=== PATIENT | female | born 1950 | race Caucasian/White ===

== ENCOUNTER → 2023-12-29 | Outpatient (REF) | payer OTHER, SELFPAY | LOC: DHSLP | PROVIDERS: ATTENDING PHYSICIAN Internal Medicine Critical Care Medicine; FAMILY PHYSICIAN Physician Assistant | DX: G47.30 Sleep apnea, unspecified (principal); R06.83 Snoring | CPT/HCPCS: 95800 ==

== ENCOUNTER → 2024-03-09 12:30 | Outpatient (REF) | payer OTHER, SELFPAY | LOC: WDC 12:30 | PROVIDERS: ATTENDING PHYSICIAN Obstetrics & Gynecology Gynecology; FAMILY PHYSICIAN Student in an Organized Health Care Education/Training Program | DX: Z12.31 Encounter for screening mammogram for malignant neoplasm of breast (principal) | CPT/HCPCS: 77063; 77067 ==

== ENCOUNTER → 2024-03-25 14:15 | Outpatient (REF) | payer OTHER, SELFPAY | LOC: RAD 14:15 | PROVIDERS: ATTENDING PHYSICIAN Physician Assistant | DX: R05.1 Acute cough (principal) | CPT/HCPCS: 71046 ==

== ENCOUNTER → 2024-05-23 06:48 | Outpatient (REF) | payer OTHER, SELFPAY | LOC: MRI 3T 06:48 | PROVIDERS: ATTENDING PHYSICIAN Orthopaedic Surgery; FAMILY PHYSICIAN Physician Assistant | DX: M54.16 Radiculopathy, lumbar region (principal) | CPT/HCPCS: 72148 ==

== ENCOUNTER → 2024-10-13 17:13 | Outpatient (REF) | payer OTHER, SELFPAY | LOC: RAD 17:13 | PROVIDERS: ATTENDING PHYSICIAN Physician Assistant | DX: M54.6 Pain in thoracic spine (principal); R10.13 Epigastric pain | CPT/HCPCS: 71046; 72072 ==

== ENCOUNTER 2024-10-15 12:13 | Emergency (ER) | payer OTHER, SELFPAY ==
[2024-10-15 12:19] VITALS: BP 100/55
--- NOTE | 2024-10-15 15:28 | ED.GENMED ---
History of Present Illness
General
Chief Complaint: Musculo-Skeletal Complaint
Time Seen by Provider: 10/15/24 15:06
History of Present Illness
History of Present Illness:
Patient is a 74-year-old woman presenting to the emergency department back pain. Patient states that she has had subtests in her lumbar region that she goes to an orthopedic surgeon for. She is getting spinal injections. She states that a few
days ago she stepped off when she developed sharp mid back pain. She went to her primary care doctor and obtain an x-ray. I did review the x-ray from 2 days ago. It does appear that she has a mild T7 compression fracture. Patient's primary care
did start her on oxycodone told her to follow-up with her orthopedic surgeon. She states that she has been taking 10 mg oxycodone every 6 hours. The pain has not improved so she came in for further evaluation. She has not tried Tylenol Motrin or
other adjunctive medications. No numbness tingling. No radiation. No urinary incontinence. No fevers or chills. No weight loss. No night sweats.
Past History
Past History
ED Past Medical History: Hypercholesterolemia, Psychiatric (anxiety) and Other (Compression Fractures)
ED Past Surgical History: Cholecystectomy and Other (Vani-en-Y bariatric surgery April 2014)
Social History
Tobacco: Smoker (chronic, now smokes 'about a pack a week.')
Alcohol: None
Drug: None
Personal: Single
Living: alone
Employment: Employed
Family History
Family History: Hypertension; Negative Early CAD
Phy Exam
Physical Exam
Physical Exam:
GENERAL: in no acute distress
HEENT: normocephalic, extraocular movements intact, moist oral mucosa
NECK: normal inspection, no tenderness to palpation
Back: Tenderness to palpation over the mid thoracic spine
RESPIRATORY: no respiratory distress, clear to auscultation bilaterally
CARDIOVASCULAR: regular rate and rhythm
EXTREMITIES: non-tender, no edema/swelling
NEUROLOGIC: awake and alert, moves all extremities
SKIN: warm
Course
Orders/Labs/Results
Orders:
Orders
10/15/24 15:27
Acetaminophen [Tylenol] 1,000 mg PO NOW STA
Ibuprofen [Motrin] 800 mg PO NOW STA
10/15/24 15:30
Lidocaine [Lidocaine 4% Patch] 1 patch TOPICAL DAILY
Apply Lidocaine patch(s) to:: middle back
Vital Signs
Initial and Last Documented VS:
Initial Vital Signs
Temp Pulse Resp BP Pulse Ox
98.1 F 108 16 100/55 95
10/15/24 12:19 10/15/24 12:19 10/15/24 12:19 10/15/24 12:19 10/15/24 12:19
Last Documented Vital Signs
Temp Pulse Resp BP Pulse Ox
98.1 F 85 16 106/52 97
10/15/24 12:19 10/15/24 16:16 10/15/24 16:16 10/15/24 16:16 10/15/24 16:16
MDM/Problems Addressed
Differential Diagnosis Includes:
Patient is a 74-year-old woman with known compression fracture presenting to the emergency department for worsening pain. Vitals are unremarkable exam does show tenderness palpation over the mid thoracic region likely T7. Given that patient has no
red flags otherwise likely pain that has not been well-managed. History exam not consistent with an infection, lytic lesion/malignancy. After shared decision making we will proceed with Tylenol Advil and lidocaine patch. I did consider obtaining
CT scan however will hold off at this time
*Critical Care Note
Total Time (30-74mins, 75-104mins- exclusive of procedures): Not Applicable
Update Note
Update Note:
On reevaluations patient's pain has significantly improved. I did educate patient on using Tylenol Motrin first before using the oxycodone. Also advised patient to try to take 5 mg of oxycodone instead of the 10 mg. Will discharge patient at this
time. Of note patient's blood pressure is in the low 100s which is patient's normal. She is not lightheaded or dizzy. She has no further concerns. Will discharge at this time
ED Attending Note
-
Portions of this chart may have been created with voice recognition software.� Occasional wrong word or��sound alike� substitutions may have occurred due to the inherent limitations of voice recognition software.
Discharge Plan
Departure
Patient Disposition: Home (Routine Discharge)
Date of Disposition: 10/15/24
Time of Disposition: 16:23
Patient with high blood pressure during this ER visit?: No
Discharge Problem:
Back pain
Instructions: Vertebral Compression Fracture ED
Prescriptions:
No Action
fluoxetine 20 MG capsule
80 mg PO DAILY
hydroxyzine pamoate [Vistaril] 25 MG capsule
50 mg PO DAILY
rosuvastatin 20 MG tablet
5 mg PO QPM
aripiprazole 5 MG tablet
2 mg PO DAILY
prednisone 10 MG tablet
10 mg PO DAILY Qty: 10 0RF
albuterol sulfate 1 PUFF HFA aerosol inhaler
2 puff inhalation R Q4HPRN PRN (Reason: cough, wheeze) Qty: 1 1RF
alprazolam [Xanax] 0.5 mg tablet
0.5 mg PO HS PRN (Reason: Sleep) Qty: 5 0RF
Activity Restrictions/Additional Instructions:
We discussed pain medications:
You may take Tylenol (also known as Acetaminophen) for pain.
You may take 1000mg Acetaminophen (two extra-strength tablets) per dose, which should be taken every 6-8 hours, or three times a day.
If you have normal strength Tylenol, you can take 650mg (two normal strength tablets) every 4-6 hours.
Do not take more than 3,000mg (3 grams) of Acetaminophen per day.
Never take more than as directed on the bottle.
You may also take Ibuprofen (also known as Motrin or Advil). If taking with Tylenol, alternate and take between dosing.
You may take 400-800mg of Ibuprofen per dose, which should be taken every 6-8 hours.
Do not take more than 3200mg (3.2 grams) of Ibuprofen per day.
You may also benefit from using a Lidocaine Patch (also known as 'Salon Pas'), which is an over the counter pain patch.
Place it just over the site of pain, avoiding areas of skin damage, as per instructions on the patch.
If the Tylenol and Motrin do not improve your pain then you may use Oxycodone for severe or breakthrough pain. This medication can cause constipation and drowsiness. Do not drive or make important decisions while taking it. Consider using a laxative
such as Senna while taking this medication.
Please see your primary care doctor soon to be reevaluated and to make sure that you are improving. We have included information about establishing care with a doctor if you do not have one.
We talked about your evaluation, diagnosis, and treatment in the Emergency Department today. You must see your primary doctor for recheck and followup care in order to evaluate your progress or any changes. Have your doctor recheck the test
results/information from the ED visit. As discussed, RETURN to the ED if you develop worsening/changing symptoms or have no improvement in symptoms after the treatments provided.
Interventions
Interventions:
*Risk Screen - Suicide Last Done: 10/15/24 12:19
*General Assessment Last Done: 10/15/24 15:52
*Neglect/Abuse Screening Last Done: 10/15/24 12:19
ED- Fall Risk Assessment Last Done: 10/15/24 15:53
*ED COVID-19 Vaccine History Last Done: 10/15/24 15:52
ED-Musculoskeletal Assessment Last Done: 10/15/24 15:53
Discharge Date and Time
Print Language: MALDIVIAN
[2024-10-15] MEDS: TYLENOL 1000 MG PO (15:46)
[2024-10-15] MEDS: MOTRIN 800 MG PO (15:48)
[2024-10-15] MEDS: LIDOCAINE 4% PATCH 1 PATCH TOPICAL (15:49)
[2024-10-15 15:51] VITALS: BMI 35.6
[2024-10-15 15:55] VITALS: BP 95/71
--- NOTE | 2024-10-15 16:15 | EDRN ---
BP was low, am rechecking. Pt states her BP is normally that low.
[2024-10-15 16:16] VITALS: BP 106/52
== END 2024-10-15 16:40 | disposition home or self-care (01) ==
LOC: EMR 12:13
PROVIDERS: EMERGENCY PHYSICIAN Student in an Organized Health Care Education/Training Program; FAMILY PHYSICIAN Physician Assistant
DX: M54.6 Pain in thoracic spine (principal); M48.54XA Collapsed vertebra, not elsewhere classified, thoracic region, initial encounter for fracture; E78.00 Pure hypercholesterolemia, unspecified; F41.9 Anxiety disorder, unspecified; F17.210 Nicotine dependence, cigarettes, uncomplicated; Z90.49 Acquired absence of other specified parts of digestive tract; Z98.84 Bariatric surgery status; Z88.0 Allergy status to penicillin; Z88.2 Allergy status to sulfonamides; Z88.8 Allergy status to other drugs, medicaments and biological substances
CPT/HCPCS: 99282

== ENCOUNTER 2024-11-09 22:27 | Emergency (ER) | payer MEDICARE, SELFPAY ==
[2024-11-09 22:28] VITALS: BP 140/78
[2024-11-09 22:38] VITALS: BMI 36.9
[2024-11-09 23:00] VITALS: BP 131/78
[2024-11-09] MEDS: DILAUDID 1 MG IV (23:52)
[2024-11-09 23:57] LABS: % Basophils 0.7 % (0-2); % Immature Granulocytes 0.4 % (0-0.5); % Lymphocytes 23.8 % (20.5-51.1); % Monocytes 6.4 % (1.7-9.3); % Neutrophils 65.7 % (42.2-75.2); Absolute Basophils 0.1 10^3/uL (0-0.2); Absolute Eosinophils 0.2 10^3/uL (0-0.7); Absolute Lymphocytes 1.8 10^3/uL (1.2-3.4); Absolute Monocytes 0.5 10^3/uL (0.1-0.6); Absolute Neutrophils 4.9 10^3/uL (1.4-6.5); Hematocrit 40.1 % (37.0-47.0); Mean Corp Hgb Conc. 32.4 g/dL (33.0-37.0); Mean Corpuscular Hgb 25.9 pg (27.0-31.0); Mean Corpuscular Volume 79.9 fL (81.0-99.0); Nucleated Red Blood Cells % 0 %; Platelet Count 206 10^3/uL (130-400); Red Blood Cell Count 5.02 10^6/uL (4.20-5.40); Red Cell Dist. Width 14.3 % (11.5-14.5); White Blood Cell Count 7.4 10^3/uL (4.8-10.8)
[2024-11-10] VITALS (7 sets, daily range): BP systolic 117–161; BP diastolic 59–76
[2024-11-10 00:26] LABS: Lactic Acid 0.8 mmol/L (0.7-2.0)
[2024-11-10 00:30] LABS: ALT (SGPT) 14 U/L (0-35); AST (SGOT) 24 U/L (14-36); Albumin 3.8 g/dl (3.5-5.0); Alkaline Phosphatase 94 U/L (38-126); Blood Urea Nitrogen 12 mg/dl (7-17); Calcium 8.9 mg/dl (8.4-10.2); Carbon Dioxide 23 mmol/L (22-30); Chloride 107 mmol/L (98-107); Estimated Creatinine Clearance 89 ml/min; Glucose 94 mg/dl (70-99); Lipase 101 U/L (23-300); Potassium 4.4 mmol/L (3.5-5.1); Sodium 135 mmol/L (135-145); Total Bilirubin 0.5 mg/dl (0.2-1.3); Total Protein 6.4 g/dl (6.3-8.2); eGFR > 60.00
--- NOTE | 2024-11-10 00:34 | ED.GENMED ---
History of Present Illness
General
Chief Complaint: Back Pain
Source: patient, previous radiology exam (Lumbar spine MRI April 2024. Thoracic spine x-ray October 13, 2024) and previous hospital records (ED visit with complaints of mid back pain October 15, 2024.)
Time Seen by Provider: 11/09/24 23:18
History of Present Illness
History of Present Illness:
This is a 74-year-old woman who has history of chronic low back pain, lumbar DJD, compression fracture L3 vertebra. Follows with pain management, maintained on oxycodone and has undergone several epidural steroid injections most recently this past
summer/fall without improvement. More recently has undergone local lumbar nerve root injection which was reportedly at least temporarily helpful in her low back pain thus she is contemplating rhizotomy procedure.
She also has history of T7 compression fracture noted on thoracic spine x-ray October 13, 2024. She began with somewhat abrupt mid back pain a few days prior to that x-ray. She was evaluated in this ED October 15 with complaints of mid back pain,
treated with Tylenol and ibuprofen and lidocaine patch with improvement. She states mid back pain has been stable. She has an appointment scheduled for next week with IR to discuss vertebroplasty procedure.
This evening, while turning a light on around 5 PM she developed somewhat abrupt onset of left low back pain that seem to radiate up her back and then back down her back has been persistent and severe since 5 PM. Left low back pain does not
radiated down her legs, no weakness nor numbness but she admits to marked difficulty ambulating, increased pain with attempting to stand and with attempted ambulation. She has not had a fall. No difficulty moving her bowels or bladder, no saddle
anesthesia. She denies fever nor chills. Low back pain has been radiating around to her mid to upper abdomen, worse with movement and ambulation and worse with cough. She does admit to somewhat chronic cough, continues to smoke cigarettes. She
denies chest pain, no neck pain, no arm pain or weakness.
She resides at home alone. Generally does not require assistive devices to ambulate. She does have a walker available to her but generally only needs this to help her get up from a chair.
Due to severe pain, difficulty getting up and marked difficulty ambulating she arrives to the ED via EMS.
Her last dose of oxycodone was around dinnertime.
Past History
Past History
ED Past Medical History: GERD, Hypercholesterolemia, Psychiatric (anxiety) and Other (Compression Fractures Thoracic and lumbar spine. 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 Follows with pain management.)
ED Past Surgical History: Cholecystectomy and Other (Vani-en-Y bariatric surgery April 2014)
Social History
Tobacco: Smoker (chronic, now smokes 'about a pack a week.')
Alcohol: None
Drug: None
Personal: Single
Living: alone
Employment: Retired
Family History
Family History: Hypertension; Negative Early CAD
Phy Exam
Physical Exam
Physical Exam:
GENERAL: 74-year-old woman appears her stated age, awake and alert, pleasant, appears in mild to moderate distress related to pain. Easily communicative. Rare brief dry cough is noted. No respiratory distress.
EYE: pupils equal and reactive. anicteric
NECK: Supple, nontender, no meningismus, no significant adenopathy.
ENT: oral mucosa is moist. No rhinorrhea.
CARDIAC: Regular rate and rhythm. no murmur. No palpable chest wall tenderness.
LUNGS: Clear breath sounds bilaterally, no acute respiratory distress, no wheezes/rales/rhonchi
ABDOMEN: Soft, nondistended, mild generalized tenderness mid to upper abdomen. no r/g, no cvat. normoactive BS.
BACK: pt able to sit up with assistance. mild TTP lumbar vertebral region as well as moderate TTP paralumbar region L>R. SLR (+) left
NEUROLOGICAL: Alert and oriented x3, no focal neuro deficits. MS 5/5/ b/l, gross sensation intact b/l.
SKIN: Warm and dry, normal color, skin intact. No rash.
MUSCULOSKELETAL: No C/C/E. peripheral pulses are full and equal b/l. No palpable tenderness.
PSYCH: Normal and appropriate interaction.
Course
Orders/Labs/Results
Orders:
Orders
11/09/24 23:39
Urinalysis Reflex To Culture Urgent
Date Specimen was Collected: 11/10/24
Time Specimen was Collected: 01:14
11/09/24 23:40
HYDROmorphone [Dilaudid] 1 mg IV NOW STA
11/09/24 23:50
CRP [C-Reactive Protein] Urgent
Complete Blood Count/With Diff Urgent
Comprehensive Metabolic Panel Urgent
Lactic Acid Urgent
Lipase Urgent
Sed Rate [Erythrocyte Sed Rate] Urgent
11/10/24 01:00
CT Abd/pelvis W Iv Cont Urgent
Reason For Exam: acute severe LBP rad to mid/upper abdomen
11/10/24 01:19
Urine Microscopic Reflex Cult Urgent
Urine Culture Urgent
CONCHA Source: U
Specimen Description:
Date Specimen was Collected: 11/10/24
Time Specimen was Collected: 01:14
11/10/24 01:20
Ketorolac [Toradol] 30 mg IV NOW STA
11/10/24 03:33
Dexamethasone Sod Phosphate [Decadron] 10 mg IV NOW STA
Abnormal Lab Results
11/09/24 11/10/24
23:50 01:19
MCV 79.9 L fL
(81.0-99.0)
MCH 25.9 L pg
(27.0-31.0)
MCHC 32.4 L g/dL
(33.0-37.0)
C-Reactive Protein 12.60 H mg/L
(0.0-10.00)
Urine Urobilinogen 2+ A
(Neg - 1+)
Leukocyte Esterase Rfl 1+ A
(Negative)
Urine Bacteria (Reflex) Many A
(Negative)
Urine Albumin (Reflex) 1+ A
(Neg - Trace)
11/09/24 23:50
11/09/24 23:50
Vital Signs
Initial and Last Documented VS:
Initial Vital Signs
BP
140/78
11/09/24 22:28
Last Documented Vital Signs
Temp BP Pulse Ox
98.4 F 117/68 95
11/09/24 22:32 11/10/24 06:21 11/10/24 06:23
MDM/Problems Addressed
Differential Diagnosis Includes:
Concern for exacerbation of lumbar disc disease, concern for exacerbation of back pain related to compression fractures, concern for new occult compression fractures. Other consideration is acute intra-abdominal pathology such as gastritis,
colitis, ischemic bowel, kidney stone, aortic dissection. She has not had a fever, no recent spinal procedures/at least not within the past month or 2. Therefore epidural hematoma/abscess is less likely.
Reassuring neurologic exam, no focal neurologic deficits nor concerning neurologic symptoms in history.
Will check labs, inflammatory markers, lactic acid. Medicate for pain with IV Dilaudid. Will plan for CT abdomen pelvis with IV contrast.
Social determinants of health: Concerning that patient resides alone and presents with acute ambulatory dysfunction, inability to ambulate, inability to effectively utilize her walker. There is significant concern/risk for falls, concern for
significant debility/injury.
Chronic conditions affecting care: Previous abdomnial surgery (Previous gastric sleeve procedure 2014. Thus NSAID use is limited.) and Other (Chronic low back pain/lumbar DJD with spinal stenosis, thoracic and lumbar compression fractures)
*Radiology
Radiology exam reviewed: radiology read reviewed
*Pulse Oximetry
Patient hypoxic: no
*Critical Care Note
Total Time (30-74mins, 75-104mins- exclusive of procedures): Not Applicable
Update Note
Update Note:
03:30
Patient had only minimal improvement in pain after IV Dilaudid but significant improvement in pain after IV Toradol.
Has able to get up, walk about, ambulates to and from the bathroom with steady unaided gait.
Labs are reassuring, unremarkable. CRP is very minimally elevated at 12 but normal sed rate.
Urinalysis shows many bacteria but only 0-2 WBCs, not consistent with UTI.
CT abdomen pelvis is unremarkable. There is note of hiatal hernia. Status post sleeve gastrectomy. Stool throughout the colon concerning for mild constipation. Diverticulosis without diverticulitis. No free fluid nor free air. No obstructive
urolithiasis.
I suspect exacerbation of lumbar disc disease. It is reassuring that she has had no radicular signs or symptoms. No red flags in history nor exam.
Will plan for an IV dose of Decadron as well as a prescription for tapering dose of prednisone.
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
ED Attending Note
-
Portions of this chart may have been created with voice recognition software.� Occasional wrong word or��sound alike� substitutions may have occurred due to the inherent limitations of voice recognition software.
Discharge Plan
Departure
Patient Disposition: Home (Routine Discharge)
Date of Disposition: 11/10/24
Time of Disposition: 06:40
Patient with high blood pressure during this ER visit?: No
Condition: Good
Discharge Problem:
Acute exacerbation of chronic low back pain
Instructions: Low Back Pain (DC)
Prescriptions:
New
prednisone 10 mg Tablet
See Rx Instructions .ROUTE .COMPLEX Qty: 30 0RF
Rx Instructions:
Take By Mouth:
40 mg daily x3 days, 30 mg daily x3 days,
20 mg daily x3 days, 10 mg daily x3 days.
No Action
fluoxetine 20 MG capsule
80 mg PO DAILY
hydroxyzine pamoate [Vistaril] 25 MG capsule
50 mg PO DAILY
rosuvastatin 20 MG tablet
5 mg PO QPM
aripiprazole 5 MG tablet
2 mg PO DAILY
prednisone 10 MG tablet
10 mg PO DAILY Qty: 10 0RF
albuterol sulfate 1 PUFF HFA aerosol inhaler
2 puff inhalation R Q4HPRN PRN (Reason: cough, wheeze) Qty: 1 1RF
alprazolam [Xanax] 0.5 mg tablet
0.5 mg PO HS PRN (Reason: Sleep) Qty: 5 0RF
Referrals:
Yelena Retana PA-C [Family Provider] - Call in 1-3 days for appt
Interventions
Interventions:
*Risk Screen - Suicide Last Done: 11/09/24 22:32
*General Assessment Last Done: 11/09/24 22:32
*Neglect/Abuse Screening Last Done: 11/09/24 22:32
ED- Fall Risk Assessment Last Done: 11/09/24 22:32
*ED COVID-19 Vaccine History Last Done: 11/09/24 22:32
ED-Musculoskeletal Assessment Last Done: 11/09/24 22:32
Discharge Date and Time
Print Language: ESTONIAN
[2024-11-10 00:35] LABS: Erythrocyte Sed Rate 14 mm/hour (0-20)
[2024-11-10 01:25] LABS: Urine Albumin 1+ (Neg - Trace); Urine Bilirubin Negative (Negative); Urine Character Clear (Clear); Urine Color Yellow; Urine Glucose Negative (Negative); Urine Ketone Negative (Negative); Urine Leukocyte 1+ (Negative); Urine Nitrite Negative (Negative); Urine Occult Blood Negative (Negative); Urine Urobilinogen 2+ (Neg - 1+)
[2024-11-10] MEDS: TORADOL 30 MG IV (01:29)
[2024-11-10 01:39] LABS: Urine Bacteria Many (Negative); Urine Red Blood Cell 0-2 /HPF (0-2); Urine White Cell 0-2 /HPF (0-5)
[2024-11-10] MEDS: DECADRON 10 MG IV (03:38)
== END 2024-11-10 07:00 | disposition home or self-care (01) ==
LOC: EMR 22:27
PROVIDERS: EMERGENCY PHYSICIAN Emergency Medicine; FAMILY PHYSICIAN Physician Assistant
DX: M54.50 Low back pain, unspecified (principal); W19.XXXA Unspecified fall, initial encounter; K21.9 Gastro-esophageal reflux disease without esophagitis; E78.00 Pure hypercholesterolemia, unspecified; F41.9 Anxiety disorder, unspecified; F17.210 Nicotine dependence, cigarettes, uncomplicated; Z60.2 Problems related to living alone; Z82.49 Family history of ischemic heart disease and other diseases of the circulatory system; Z90.49 Acquired absence of other specified parts of digestive tract
CPT/HCPCS: 99284; 96374; 96375; 74177; 80053; 81003; 81015; 83605; 83690; 85025; 85652; 86140; 87086; Q9967

== ENCOUNTER → 2024-11-15 11:31 | Outpatient (REF) | payer MEDICARE, SELFPAY | LOC: RADI 11:31 | PROVIDERS: ATTENDING PHYSICIAN Physician Assistant | DX: M80.08XA Age-related osteoporosis with current pathological fracture, vertebra(e), initial encounter for fracture (principal) ==

== ENCOUNTER → 2024-11-22 06:55 | Outpatient (REF) | payer MEDICARE, SELFPAY | LOC: PAVMRI 06:55 | PROVIDERS: ATTENDING PHYSICIAN Physician Assistant; FAMILY PHYSICIAN Physician Assistant | DX: M54.50 Low back pain, unspecified (principal) | CPT/HCPCS: 72148 ==

== ENCOUNTER → 2024-11-28 06:51 | Outpatient (REF) | payer MEDICARE, SELFPAY ==
[2024-11-28] VITALS (10 sets, daily range): BP systolic 94–141; BP diastolic 65–75
[2024-11-28 07:21] LABS: INR 0.94; PT 12.9 Sec (11.4-14.6)
[2024-11-28] MEDS: VANCOCIN 200 IV (08:34)
[2024-11-28] MEDS: DECADRON 10 MG IV (08:36)
--- NOTE | 2024-11-30 12:30 | W.PN.UPDATE ---
Update Note
Progress Note Update
74 yo female s/p L1 vertebral augmentation on 11/28/24. She reports significant low back pain today stating pain is almost as bad as it was preprocedure. I did advise that it can take up to 1 week for symptoms to improve. She does have osteoporosis
and we again reviewed that because of this she is at greater risk for developing an adjacent fracture in T12 or L2. She was advised if symptoms do not improve in 1 week she should follow up with her orthopedist to obtaina new MRI to see if she has
any acute compression fractures.
== END ==
LOC: RADI 06:51
PROVIDERS: ATTENDING PHYSICIAN Radiology Vascular & Interventional Radiology; FAMILY PHYSICIAN Physician Assistant; OTHER PHYSICIAN Physician Assistant; REFERRING PHYSICIAN Physician Assistant
DX: M80.08XA Age-related osteoporosis with current pathological fracture, vertebra(e), initial encounter for fracture (principal); S32.010A Wedge compression fracture of first lumbar vertebra, initial encounter for closed fracture; S22.060A Wedge compression fracture of T7-T8 vertebra, initial encounter for closed fracture; M54.89 Other dorsalgia; X58.XXXA Exposure to other specified factors, initial encounter
CPT/HCPCS: 22514; 36415; 85610

== ENCOUNTER → 2024-12-10 09:52 | Outpatient (REF) | payer MEDICARE, SELFPAY | LOC: PAVMRI 09:52 | PROVIDERS: ATTENDING PHYSICIAN Physician Assistant; FAMILY PHYSICIAN Physician Assistant | DX: S32.010D Wedge compression fracture of first lumbar vertebra, subsequent encounter for fracture with routine healing (principal); Z98.890 Other specified postprocedural states | CPT/HCPCS: 72148 ==

== ENCOUNTER → 2024-12-21 08:43 | Outpatient (REF) | payer MEDICARE, SELFPAY | LOC: RAD 08:43 | PROVIDERS: ATTENDING PHYSICIAN Physician Assistant | DX: S22.080A Wedge compression fracture of T11-T12 vertebra, initial encounter for closed fracture (principal); M80.00XD Age-related osteoporosis with current pathological fracture, unspecified site, subsequent encounter for fracture with routine healing | CPT/HCPCS: 77080 ==

== ENCOUNTER → 2024-12-28 15:59 | Outpatient (REF) | payer MEDICARE, SELFPAY | LOC: RAD 15:59 | PROVIDERS: ATTENDING PHYSICIAN Physician Assistant | DX: I70.0 Atherosclerosis of aorta (principal) | CPT/HCPCS: 75571 ==

== ENCOUNTER → 2024-12-29 11:29 | Outpatient (REF) | payer MEDICARE, SELFPAY | LOC: HWRAD 11:29 | PROVIDERS: ATTENDING PHYSICIAN Nurse Practitioner Adult Health; FAMILY PHYSICIAN Physician Assistant | DX: F17.210 Nicotine dependence, cigarettes, uncomplicated (principal) | CPT/HCPCS: 71271 ==

== ENCOUNTER → 2025-01-11 06:43 | Outpatient (REF) | payer MEDICARE, SELFPAY ==
[2025-01-11] VITALS (13 sets, daily range): BP systolic 87–129; BP diastolic 52–89
[2025-01-11 07:09] LABS: % Basophils 0.9 % (0-2); % Immature Granulocytes 0.3 % (0-0.5); % Lymphocytes 25.7 % (20.5-51.1); % Monocytes 7.8 % (1.7-9.3); % Neutrophils 61.3 % (42.2-75.2); Absolute Basophils 0.1 10^3/uL (0-0.2); Absolute Eosinophils 0.3 10^3/uL (0-0.7); Absolute Monocytes 0.6 10^3/uL (0.1-0.6); Absolute Neutrophils 4.7 10^3/uL (1.4-6.5); Hemoglobin 12.1 g/dL (12.0-16.0); Mean Corp Hgb Conc. 31.8 g/dL (33.0-37.0); Mean Corpuscular Hgb 25.1 pg (27.0-31.0); Mean Corpuscular Volume 78.7 fL (81.0-99.0); Nucleated Red Blood Cells % 0 %; Platelet Count 246 10^3/uL (130-400); Red Blood Cell Count 4.83 10^6/uL (4.20-5.40); Red Cell Dist. Width 15.7 % (11.5-14.5); White Blood Cell Count 7.7 10^3/uL (4.8-10.8)
[2025-01-11 07:16] LABS: INR 0.98; PT 13.3 Sec (11.4-14.6)
[2025-01-11] MEDS: VANCOCIN 530 MG IV (08:38)
== END ==
LOC: RADI 06:43
PROVIDERS: ATTENDING PHYSICIAN Physician Assistant; FAMILY PHYSICIAN Physician Assistant; OTHER PHYSICIAN Physician Assistant
DX: M80.08XA Age-related osteoporosis with current pathological fracture, vertebra(e), initial encounter for fracture (principal)
CPT/HCPCS: 22513; 36415; 76380; 85025; 85610

== ENCOUNTER → 2025-03-28 12:58 | Outpatient (REF) | payer MEDICARE, SELFPAY | LOC: RCS 12:58 | PROVIDERS: ATTENDING PHYSICIAN Internal Medicine Cardiovascular Disease; FAMILY PHYSICIAN Physician Assistant | DX: R06.02 Shortness of breath (principal) | CPT/HCPCS: 93306 ==